=== PATIENT | female | born 1935 | race Caucasian/White ===

== ENCOUNTER 2017-11-21 08:26 | Day surgery (SDC) | payer OTHER ==
[~2017-11-21] VITALS: Ht 170.2 cm; Wt 83.9 kg
[~2017-11-21 08:26] MED LIST: ALBIPROI INH; ALBU90OI INH; ALBU90OI61; ALUMAG30SU PO; ASCO500 PO; ASPI325 PO; ASPI81EC PO; Acetaminophen325 M1 PO; CALCIUM CITRATE PO; CALMAGZIN PO; CEFP500 PO; CEFU500 PO; CHOL10002; Calcium + Vita1 EACH PO; Culturelle1 CAP PO; DILT120 PO; DILT180 PO; DOXY100 PO; FISH1000 PO; FLONASE ALLERG9.9 ML NS; FLUSAL2505; FLUSAL5005; FLUT1DIS5 INH; GLUCOSAMINE1000 MG PO; HYDACE5325 PO; HYDROCODONE CO PO; IBUP400 PO; LASIX PO; LEVFLO500 PO; LORA1 PO; LOSA50 PO; MELA3 PO; METF500C PO; METPRE4DP; MONT10T; MONT10T PO; MOXI400; MOXI400 PO; MULVITMIND PO; NEBI5 PO; OXYGEN; POTASSIUM CHLORIDE PO; PRED10 PO; PRED20 PO; PROBIOTIC; PROM25 PO; Prednisone20 MG PO; SULTRIDS; TIOT18 IH; VALS80; Ventolin/Prove6.7 GM INH; Veramyst10 GM; WARF5 PO; Zantac150 MG PO
[2017-11-21] MEDS ORDERED: NEBI5 PO (09:29)
[2017-11-21] MEDS ORDERED: ADULT ASPIRIN R81 MG PO (09:29)
[2018-08-29] MEDS ORDERED: CEFU500T30 PO (09:41)
[2018-08-29] MEDS ORDERED: DELTASONE20 MG PO (09:43)
== END 2017-11-21 12:15 | disposition home or self-care (01) ==
LOC: ORSCSDS 08:26
PROVIDERS: Internal Medicine Gastroenterology
PROC: 0DBK8ZX Excision of Ascending Colon, Via Natural or Artificial Opening Endoscopic, Diagnostic (ICD-10-PCS; principal; 2017-11-21 10:00)
PROC: 0DBH8ZX Excision of Cecum, Via Natural or Artificial Opening Endoscopic, Diagnostic (ICD-10-PCS; principal; 2017-11-21 10:00)
PROC: 0DBL8ZX Excision of Transverse Colon, Via Natural or Artificial Opening Endoscopic, Diagnostic (ICD-10-PCS; principal; 2017-11-21 10:00)
PROC: 0DBN8ZX Excision of Sigmoid Colon, Via Natural or Artificial Opening Endoscopic, Diagnostic (ICD-10-PCS; principal; 2017-11-21 10:00)
DX: Z12.11 Encounter for screening for malignant neoplasm of colon (principal); D12.0 Benign neoplasm of cecum; D12.3 Benign neoplasm of transverse colon; D12.4 Benign neoplasm of descending colon; K63.5 Polyp of colon; K64.8 Other hemorrhoids; K57.30 Diverticulosis of large intestine without perforation or abscess without bleeding; Z86.010 Personal history of colon polyps; J44.9 Chronic obstructive pulmonary disease, unspecified; I10 Essential (primary) hypertension; Z87.891 Personal history of nicotine dependence; Z79.82 Long term (current) use of aspirin; Z79.899 Other long term (current) drug therapy
CPT/HCPCS: 82947; 88305; J7120

== ENCOUNTER 2018-02-18 20:27 | Inpatient (IN) | payer OTHER ==
[~2018-02-18] VITALS: Ht 170.2 cm; Wt 81.9 kg
[~2018-02-18 20:27] MED LIST changes: +ADULT ASPIRIN R81 MG PO; +FLUSAL2505 IH; -FLUT1DIS5 INH; +METF500 PO; -METF500C PO; +RANI150 PO; -Zantac150 MG PO
[2018-02-18 20:51] LABS: BASOPHILS ABSOLUTE AUTO 0.04 K/mm3 (0.00-0.23); BASOPHILS PERCENT AUTO 0 % (0-2); EOSINOPHILS ABSOLUTE AUTO 0.25 K/mm3 (0.00-0.68); EOSINOPHILS PERCENT AUTO 2 % (0-6); Hematocrit 40.6 % (33.0-51.0); Hemoglobin 12.9 g/dL (11.5-16.0); IMMATURE GRAN ABSOLUTE AUTO 0.05 K/mm3 (0.00-0.10); IMMATURE GRAN PERCENT AUTO 0 % (0-1); LYMPHOCYTES PERCENT AUTO 10 % (21-46); MONOCYTES ABSOLUTE AUTO 0.86 K/mm3 (0.16-1.47); MONOCYTES PERCENT AUTO 5 % (4-13); Mean Corpuscular HGB 31.5 pg (26.0-34.0); Mean Corpuscular HGB Conc 31.8 g/dL (31.5-36.5); Mean Corpuscular Volume 99 fL (80-100); Mean Platelet Volume 10.7 fL (9.1-12.4); NEUTROPHILS ABSOLUTE AUTO 13.02 K/mm3 (1.96-9.15); NEUTROPHILS PERCENT AUTO 82 % (41-73); Platelet Count 221 K/mm3 (150-400); RDW Coefficient Variation 12.9 % (11.7-14.2); White Blood Cell Count 15.82 K/mm3 (4.00-11.30)
[2018-02-18 21:07] LABS: Alanine Aminotransfer (ALT/SGP 23 U/L (12-78); Albumin, Blood 3.7 g/dL (3.4-5.0); Albumin/Globulin Ratio 1.3 (0.8-1.8); Alk Phos 58 U/L (50-136); Anion Gap 5 mmol/L (6-16); Aspartate Aminotrans (AST/SGOT 19 U/L (12-37); Bilirubin, Total 0.6 mg/dL (0.1-1.0); Blood Urea Nitrogen 22 mg/dL (8-24); CO2, Blood 36 mmol/L (21-32); Calcium, Blood 8.9 mg/dL (8.5-10.1); Chloride, Blood 101 mmol/L (98-108); Creatinine, Blood 0.67 mg/dL (0.40-1.00); Globulin, Blood 2.9 g/dL (2.2-4.0); Glomerular Filtration Rate >60 (60-); Glucose, Blood 133 mg/dL (70-99); Potassium, Blood 4.8 mmol/L (3.5-5.5); Sodium, Blood 142 mmol/L (136-145); Total Protein, Blood 6.6 g/dL (6.4-8.2)
[2018-02-18 21:38] LABS: International Normalized Ratio 1.03; Prothrombin Time Results 10.7 Sec (9.7-11.5)
[2018-02-19 00:35] LABS: BASOPHILS ABSOLUTE AUTO 0.03 K/mm3 (0.00-0.23); BASOPHILS PERCENT AUTO 0 % (0-2); EOSINOPHILS ABSOLUTE AUTO 0.17 K/mm3 (0.00-0.68); EOSINOPHILS PERCENT AUTO 1 % (0-6); Hematocrit 36.7 % (33.0-51.0); Hemoglobin 11.6 g/dL (11.5-16.0); IMMATURE GRAN ABSOLUTE AUTO 0.06 K/mm3 (0.00-0.10); IMMATURE GRAN PERCENT AUTO 0 % (0-1); LYMPHOCYTES ABSOLUTE AUTO 0.54 K/mm3 (0.84-5.20); LYMPHOCYTES PERCENT AUTO 3 % (21-46); MONOCYTES ABSOLUTE AUTO 0.69 K/mm3 (0.16-1.47); MONOCYTES PERCENT AUTO 4 % (4-13); Mean Corpuscular HGB 31.3 pg (26.0-34.0); Mean Corpuscular HGB Conc 31.6 g/dL (31.5-36.5); Mean Corpuscular Volume 99 fL (80-100); Mean Platelet Volume 10.6 fL (9.1-12.4); NEUTROPHILS ABSOLUTE AUTO 14.84 K/mm3 (1.96-9.15); NEUTROPHILS PERCENT AUTO 91 % (41-73); Platelet Count 180 K/mm3 (150-400); RDW Coefficient Variation 12.8 % (11.7-14.2); RDW Standard Deviation 46.5 fL (35.1-46.3); Red Blood Cell Count 3.71 M/mm3 (3.80-5.20); White Blood Cell Count 16.33 K/mm3 (4.00-11.30)
[2018-02-19] MEDS ORDERED: ASPI325 PO (01:01)
[2018-02-19] MEDS ORDERED: TOCO1000 PO (01:06)
[2018-02-19 05:09] LABS: BASOPHILS ABSOLUTE AUTO 0.02 K/mm3 (0.00-0.23); BASOPHILS PERCENT AUTO 0 % (0-2); EOSINOPHILS ABSOLUTE AUTO 0.14 K/mm3 (0.00-0.68); EOSINOPHILS PERCENT AUTO 1 % (0-6); Hematocrit 32.5 % (33.0-51.0); Hemoglobin 10.4 g/dL (11.5-16.0); IMMATURE GRAN ABSOLUTE AUTO 0.03 K/mm3 (0.00-0.10); IMMATURE GRAN PERCENT AUTO 0 % (0-1); LYMPHOCYTES ABSOLUTE AUTO 0.76 K/mm3 (0.84-5.20); LYMPHOCYTES PERCENT AUTO 7 % (21-46); MONOCYTES ABSOLUTE AUTO 0.62 K/mm3 (0.16-1.47); MONOCYTES PERCENT AUTO 6 % (4-13); Mean Corpuscular HGB 31.9 pg (26.0-34.0); Mean Corpuscular Volume 100 fL (80-100); Mean Platelet Volume 10.9 fL (9.1-12.4); NEUTROPHILS ABSOLUTE AUTO 9.64 K/mm3 (1.96-9.15); NEUTROPHILS PERCENT AUTO 86 % (41-73); Platelet Count 158 K/mm3 (150-400); RDW Coefficient Variation 13.2 % (11.7-14.2); RDW Standard Deviation 48.6 fL (35.1-46.3); Red Blood Cell Count 3.26 M/mm3 (3.80-5.20); White Blood Cell Count 11.21 K/mm3 (4.00-11.30)
[2018-02-19 05:25] LABS: Anion Gap 5 mmol/L (6-16); Blood Urea Nitrogen 22 mg/dL (8-24); Bun/Creatinine Ratio 27.5 (12.0-20.0); CO2, Blood 31 mmol/L (21-32); Calcium, Blood 7.6 mg/dL (8.5-10.1); Chloride, Blood 107 mmol/L (98-108); Glomerular Filtration Rate >60 (60-); Glucose, Blood 163 mg/dL (70-99); Potassium, Blood 4.8 mmol/L (3.5-5.5); Sodium, Blood 143 mmol/L (136-145)
[2018-02-20 04:17] LABS: Hematocrit 30.4 % (33.0-51.0); Hemoglobin 9.7 g/dL (11.5-16.0)
[2018-02-20 10:35] LABS: Anion Gap 5 mmol/L (6-16); Blood Urea Nitrogen 8 mg/dL (8-24); Bun/Creatinine Ratio 13.4 (12.0-20.0); CO2, Blood 32 mmol/L (21-32); Calcium, Blood 8.1 mg/dL (8.5-10.1); Chloride, Blood 106 mmol/L (98-108); Glomerular Filtration Rate >60 (60-); Glucose, Blood 177 mg/dL (70-99); Potassium, Blood 3.8 mmol/L (3.5-5.5); Sodium, Blood 143 mmol/L (136-145)
== END 2018-02-20 15:10 | disposition home or self-care (01) | DRG 379 ==
LOC: ER 20:27 → ICUW 22:29 → PCU 22:29 → ICUW 02-19 00:26
PROVIDERS: Emergency Medicine; Family Medicine; Internal Medicine; Internal Medicine Gastroenterology
DX: K62.5 Hemorrhage of anus and rectum (principal)
CPT/HCPCS: 36415; 36430; 80048; 80053; 85014; 85018; 85025; 85610; 85730; 86850; 86900; 86901; 86923; 88305; 93005; 93010; 94640; 96374; 96376; 99285; C9113; J1940; J1980; J7030; J7042; J7120; P9016

== ENCOUNTER 2018-07-29 14:20 | Inpatient (IN) | payer OTHER ==
[~2018-07-29] VITALS: Ht 170.2 cm; Wt 82.2 kg
[~2018-07-29 14:20] MED LIST changes: -FLUSAL2505 IH; +FLUT1DIS5 INH; -METF500 PO; +METF500C PO; -RANI150 PO; +TOCO1000 PO; +Zantac150 MG PO
[2018-07-29 14:50] LABS: BASOPHILS ABSOLUTE AUTO 0.03 K/mm3 (0.00-0.23); BASOPHILS PERCENT AUTO 0 % (0-2); EOSINOPHILS ABSOLUTE AUTO 0.12 K/mm3 (0.00-0.68); EOSINOPHILS PERCENT AUTO 2 % (0-6); Hemoglobin 12.2 g/dL (11.5-16.0); IMMATURE GRAN ABSOLUTE AUTO 0.02 K/mm3 (0.00-0.10); IMMATURE GRAN PERCENT AUTO 0 % (0-1); LYMPHOCYTES ABSOLUTE AUTO 0.84 K/mm3 (0.84-5.20); LYMPHOCYTES PERCENT AUTO 10 % (21-46); MONOCYTES ABSOLUTE AUTO 0.52 K/mm3 (0.16-1.47); MONOCYTES PERCENT AUTO 6 % (4-13); Mean Corpuscular HGB 31.8 pg (26.0-34.0); Mean Corpuscular HGB Conc 30.5 g/dL (31.5-36.5); Mean Corpuscular Volume 104 fL (80-100); Mean Platelet Volume 10.6 fL (9.1-12.4); NEUTROPHILS ABSOLUTE AUTO 6.68 K/mm3 (1.96-9.15); NEUTROPHILS PERCENT AUTO 81 % (41-73); Platelet Count 174 K/mm3 (150-400); RDW Coefficient Variation 13.7 % (11.7-14.2); Red Blood Cell Count 3.84 M/mm3 (3.80-5.20); White Blood Cell Count 8.21 K/mm3 (4.00-11.30)
[2018-07-29 15:07] LABS: Alanine Aminotransfer (ALT/SGP 18 U/L (12-78); Albumin, Blood 3.7 g/dL (3.4-5.0); Albumin/Globulin Ratio 1.1 (0.8-1.8); Alk Phos 57 U/L (50-136); Anion Gap 3 mmol/L (6-16); Aspartate Aminotrans (AST/SGOT 13 U/L (12-37); Bilirubin, Total 0.6 mg/dL (0.1-1.0); Blood Urea Nitrogen 15 mg/dL (8-24); Bun/Creatinine Ratio 24.6 (12.0-20.0); CO2, Blood 40 mmol/L (21-32); Chloride, Blood 96 mmol/L (98-108); Creatinine, Blood 0.61 mg/dL (0.40-1.00); Globulin, Blood 3.3 g/dL (2.2-4.0); Glomerular Filtration Rate >60 (60-); Glucose, Blood 121 mg/dL (70-99); Potassium, Blood 4.6 mmol/L (3.5-5.5); Sodium, Blood 139 mmol/L (136-145); Troponin I <0.015 ng/mL (0.000-0.040)
[2018-07-29 16:14] LABS: PCO2 Arterial 80.3 mmHg (35-45); PO2 Arterial 70.7 mmHg (80-100); pH Blood Arterial 7.29 (7.35-7.45)
[2018-07-29 19:43] LABS: Blood, Urine Neg (Neg); Glucose Qualitative, Urine Neg (Neg); Ketones, Urine 1+ (Neg); Leukocyte Esterase, Urine Neg (Neg); Nitrite, Urine Pos (Neg); Protein, Urine Neg (Neg); Specific Gravity, Urine 1.015 (1.003-1.022); Urobilinogen, Urine 1+ (Normal)
[2018-07-29 19:44] LABS: Appearance, Urine Clear (Clear); Bilirubin, Urine 1+ (Neg); Color, Urine Orange (P-Yellow)
[2018-07-29 19:49] LABS: Bacteria Not Seen /hpf; Red Blood Cells, Urine 0-2 /hpf (0-2); Squamous Epithelial Cells Few /hpf (Few); White Blood Cells, Urine 0-2 /hpf (0-5)
[2018-07-30 08:02] LABS: PCO2 Arterial 82.9 mmHg (35-45); pH Blood Arterial 7.29 (7.35-7.45)
[2018-08-01 06:04] LABS: Anion Gap 4 mmol/L (6-16); Blood Urea Nitrogen 28 mg/dL (8-24); Bun/Creatinine Ratio 40.9 (12.0-20.0); CO2, Blood 38 mmol/L (21-32); Calcium, Blood 8.8 mg/dL (8.5-10.1); Chloride, Blood 96 mmol/L (98-108); Creatinine, Blood 0.68 mg/dL (0.40-1.00); Glomerular Filtration Rate >60 (60-); Glucose, Blood 189 mg/dL (70-99); Sodium, Blood 138 mmol/L (136-145)
[2018-08-02] MEDS ORDERED: METO50ER PO (10:23)
[2018-08-02] MEDS ORDERED: PRED10 PO (10:48)
== END 2018-08-02 11:15 | disposition home or self-care (01) | DRG 189 ==
LOC: ER 14:20 → ICUW 16:30 → PCU 16:30
PROVIDERS: Emergency Medicine; Family Medicine; Internal Medicine Critical Care Medicine
DX: J96.22 Acute and chronic respiratory failure with hypercapnia (principal); J44.1 Chronic obstructive pulmonary disease with (acute) exacerbation; E87.3 Alkalosis; E87.2 Acidosis; I48.92 Unspecified atrial flutter; J96.21 Acute and chronic respiratory failure with hypoxia; I10 Essential (primary) hypertension; Z87.891 Personal history of nicotine dependence; Z99.81 Dependence on supplemental oxygen; I27.20 Pulmonary hypertension, unspecified; E11.9 Type 2 diabetes mellitus without complications; Z79.84 Long term (current) use of oral hypoglycemic drugs; Z79.82 Long term (current) use of aspirin; I48.0 Paroxysmal atrial fibrillation; I48.91 Unspecified atrial fibrillation
CPT/HCPCS: 36415; 36600; 71046; 80048; 80053; 81001; 82803; 84484; 85025; 87086; 90686; 93005; 93010; 93306; 94640; 94760; 96361; 96374; 99285-25; G0008; J1940; J2920; J2930; J7030

== ENCOUNTER 2018-09-23 04:31 | Emergency (ER) | payer OTHER ==
[~2018-09-23] VITALS: Ht 170.2 cm; Wt 81.7 kg
[~2018-09-23 04:31] MED LIST changes: +CEFU500T30 PO; +DELTASONE20 MG PO; +METO50ER PO
[2018-09-23] MEDS ORDERED: DELTASONE20 MG PO (04:45)
[2018-09-23] MEDS ORDERED: FURO40 PO (04:46)
[2018-09-23] MEDS ORDERED: OMEGA 3 500 SO1 EACH PO (04:47)
[2018-09-23] MEDS ORDERED: VITAMIN E400 UNI1 PO (04:49)
[2018-09-23] MEDS ORDERED: POTCHL10ER PO (04:50)
[2018-09-23] MEDS ORDERED: Biscolax10 MG PR (04:52)
[2018-09-23] MEDS ORDERED: ALUM-MAG HYDRO360 ML PO (04:53)
[2018-09-23] MEDS ORDERED: ALBU3IS INH (04:53)
[2018-09-23 05:32] LABS: Alanine Aminotransfer (ALT/SGP 26 U/L (12-78); Albumin, Blood 2.7 g/dL (3.4-5.0); Albumin/Globulin Ratio 1.1 (0.8-1.8); Alk Phos 50 U/L (50-136); Aspartate Aminotrans (AST/SGOT 12 U/L (12-37); Bilirubin, Total 1.6 mg/dL (0.1-1.0); Blood Urea Nitrogen 18 mg/dL (8-24); Bun/Creatinine Ratio 38.5 (12.0-20.0); Calcium, Blood 8.2 mg/dL (8.5-10.1); Chloride, Blood 78 mmol/L (98-108); Creatinine, Blood 0.47 mg/dL (0.40-1.00); Globulin, Blood 2.5 g/dL (2.2-4.0); Glomerular Filtration Rate >60 (60-); Glucose, Blood 105 mg/dL (70-99); Magnesium, Blood 1.6 mg/dL (1.6-2.4); Potassium, Blood 4.5 mmol/L (3.5-5.5); Sodium, Blood 132 mmol/L (136-145); Total Protein, Blood 5.2 g/dL (6.4-8.2); Troponin I 0.027 ng/mL (0.000-0.040)
[2018-09-23 05:35] LABS: BASOPHILS ABSOLUTE AUTO 0.02 K/mm3 (0.00-0.23); BASOPHILS PERCENT AUTO 0 % (0-2); EOSINOPHILS ABSOLUTE AUTO 0.16 K/mm3 (0.00-0.68); EOSINOPHILS PERCENT AUTO 1 % (0-6); Hematocrit 34.4 % (33.0-51.0); Hemoglobin 10.9 g/dL (11.5-16.0); IMMATURE GRAN ABSOLUTE AUTO 0.15 K/mm3 (0.00-0.10); IMMATURE GRAN PERCENT AUTO 1 % (0-1); LYMPHOCYTES ABSOLUTE AUTO 0.37 K/mm3 (0.84-5.20); LYMPHOCYTES PERCENT AUTO 2 % (21-46); MONOCYTES ABSOLUTE AUTO 0.62 K/mm3 (0.16-1.47); MONOCYTES PERCENT AUTO 4 % (4-13); Mean Corpuscular HGB 32.1 pg (26.0-34.0); Mean Corpuscular HGB Conc 31.7 g/dL (31.5-36.5); Mean Corpuscular Volume 101 fL (80-100); Mean Platelet Volume 10.6 fL (9.1-12.4); NEUTROPHILS PERCENT AUTO 91 % (41-73); Platelet Count 78 K/mm3 (150-400); RDW Coefficient Variation 14.7 % (11.7-14.2); RDW Standard Deviation 53.2 fL (35.1-46.3); White Blood Cell Count 15.22 K/mm3 (4.00-11.30)
[2018-09-23 05:37] LABS: Anion Gap Unable to Calculate mmol/L (6-16)
[2018-09-23 05:39] LABS: CO2, Blood >45 mmol/L (21-32)
[2018-09-23 05:41] LABS: PCO2 Arterial 85.9 mmHg (35-45); PO2 Arterial 97.3 mmHg (80-100); pH Blood Arterial 7.42 (7.35-7.45)
[2018-09-23 05:47] LABS: International Normalized Ratio 1.06; Prothrombin Time Results 10.9 Sec (9.7-11.5)
[2018-09-23] MEDS ORDERED: MINO50 PO (13:06)
== END 2018-09-23 06:55 | disposition home or self-care (01) ==
LOC: ER 04:31
PROVIDERS: Emergency Medicine
DX: J44.1 Chronic obstructive pulmonary disease with (acute) exacerbation (principal); E11.10 Type 2 diabetes mellitus with ketoacidosis without coma; I10 Essential (primary) hypertension; I48.91 Unspecified atrial fibrillation; Z88.8 Allergy status to other drugs, medicaments and biological substances; Z91.048 Other nonmedicinal substance allergy status; Z88.1 Allergy status to other antibiotic agents; Z88.0 Allergy status to penicillin; Z88.2 Allergy status to sulfonamides; Z88.5 Allergy status to narcotic agent; Z79.899 Other long term (current) drug therapy; Z79.82 Long term (current) use of aspirin; Z79.52 Long term (current) use of systemic steroids; Z79.84 Long term (current) use of oral hypoglycemic drugs; Z87.891 Personal history of nicotine dependence
CPT/HCPCS: 36415; 36600; 71046; 80053; 82803; 83735; 83880; 84484; 85025; 85610; 93005; 93010; 99285-25

== ENCOUNTER 2018-09-23 10:00 | Emergency (ER) | payer OTHER ==
[~2018-09-23] VITALS: Ht 172.7 cm; Wt 72.6 kg
[~2018-09-23 10:00] MED LIST changes: +ALBU3IS INH; +ALUM-MAG HYDRO360 ML PO; +Biscolax10 MG PR; +FURO40 PO; +OMEGA 3 500 SO1 EACH PO; +POTCHL10ER PO; +VITAMIN E400 UNI1 PO
[2018-09-23 11:50] LABS: Base Excess Venous 27.8 mmol/L; Bicarbonate Venous 48.4 mmol/L (24.0-30.0); PCO2 Venous 76.5 mmHg (38-42); PO2 Venous 63.8 mmHg (38-42); pH Blood Venous 7.44 (7.34-7.37)
[2018-09-23] MEDS ORDERED: MINO50 PO (13:06)
== END 2018-09-23 13:36 | disposition home or self-care (01) ==
LOC: ER 10:00
PROVIDERS: Emergency Medicine
DX: J96.12 Chronic respiratory failure with hypercapnia (principal); J96.11 Chronic respiratory failure with hypoxia; J40 Bronchitis, not specified as acute or chronic; E11.9 Type 2 diabetes mellitus without complications; I10 Essential (primary) hypertension; I48.91 Unspecified atrial fibrillation; J44.9 Chronic obstructive pulmonary disease, unspecified; Z88.8 Allergy status to other drugs, medicaments and biological substances; Z91.048 Other nonmedicinal substance allergy status; Z88.1 Allergy status to other antibiotic agents; Z88.0 Allergy status to penicillin; Z88.2 Allergy status to sulfonamides; Z88.5 Allergy status to narcotic agent; Z87.891 Personal history of nicotine dependence; Z79.84 Long term (current) use of oral hypoglycemic drugs; Z79.82 Long term (current) use of aspirin; Z79.899 Other long term (current) drug therapy; Z79.52 Long term (current) use of systemic steroids; Z99.81 Dependence on supplemental oxygen
CPT/HCPCS: 82803; 93005; 93010; 94644; 99285-25

== ENCOUNTER 2018-10-17 23:55 | Inpatient (IN) | payer OTHER ==
[~2018-10-17] VITALS: Ht 167.6 cm; Wt 74.9 kg
[~2018-10-17 23:55] MED LIST changes: +MINO50 PO
[2018-10-18 00:11] LABS: BASOPHILS ABSOLUTE AUTO 0.04 K/mm3 (0.00-0.23); BASOPHILS PERCENT AUTO 0 % (0-2); EOSINOPHILS PERCENT AUTO 0 % (0-6); Hematocrit 34.9 % (33.0-51.0); Hemoglobin 10.7 g/dL (11.5-16.0); IMMATURE GRAN ABSOLUTE AUTO 0.44 K/mm3 (0.00-0.10); IMMATURE GRAN PERCENT AUTO 2 % (0-1); LYMPHOCYTES ABSOLUTE AUTO 0.54 K/mm3 (0.84-5.20); LYMPHOCYTES PERCENT AUTO 3 % (21-46); MONOCYTES ABSOLUTE AUTO 0.43 K/mm3 (0.16-1.47); MONOCYTES PERCENT AUTO 2 % (4-13); Mean Corpuscular HGB 33.3 pg (26.0-34.0); Mean Corpuscular HGB Conc 30.7 g/dL (31.5-36.5); Mean Corpuscular Volume 109 fL (80-100); Mean Platelet Volume 10.1 fL (9.1-12.4); NEUTROPHILS ABSOLUTE AUTO 18.98 K/mm3 (1.96-9.15); NEUTROPHILS PERCENT AUTO 93 % (41-73); Platelet Count 130 K/mm3 (150-400); RDW Standard Deviation 65.4 fL (35.1-46.3); Red Blood Cell Count 3.21 M/mm3 (3.80-5.20); White Blood Cell Count 20.43 K/mm3 (4.00-11.30)
[2018-10-18 00:29] LABS: Alanine Aminotransfer (ALT/SGP 27 U/L (12-78); Albumin, Blood 2.9 g/dL (3.4-5.0); Alk Phos 56 U/L (50-136); Aspartate Aminotrans (AST/SGOT 7 U/L (12-37); Bilirubin, Total 0.7 mg/dL (0.1-1.0); Blood Urea Nitrogen 32 mg/dL (8-24); Bun/Creatinine Ratio 69.3 (12.0-20.0); Calcium, Blood 8.6 mg/dL (8.5-10.1); Chloride, Blood 82 mmol/L (98-108); Creatinine, Blood 0.46 mg/dL (0.40-1.00); Globulin, Blood 2.9 g/dL (2.2-4.0); Glomerular Filtration Rate >60 (60-); Glucose, Blood 340 mg/dL (70-99); Potassium, Blood 5.4 mmol/L (3.5-5.5); Sodium, Blood 133 mmol/L (136-145); Total Protein, Blood 5.8 g/dL (6.4-8.2)
[2018-10-18 00:49] LABS: Anion Gap Unable to Calculate mmol/L (6-16); CO2, Blood >45 mmol/L (21-32)
[2018-10-18 03:15] LABS: PO2 Arterial 117 mmHg (80-100); pH Blood Arterial 7.26 (7.35-7.45)
[2018-10-18 03:16] LABS: PCO2 Arterial > 106 mmHg (35-45)
--- NOTE | 2018-10-18 03:20 | NUR ---
PT ARRIVED TO ICU 12 FROM ER AT 0240 VIA GURNEY. MAX ASSIST TO BED. PT IS DROWSY BUT WILL AROUSE TO VOICE AND SEEMS TO BE ANSWERING QUESTIONS APPROPRIATELY. ABG DRAWN DUE TO BIPAP ORDERS AND NO BASELINE ABG. CO2 GREATER THAN 106. RT PLACED BIPAP. WILL RECHECK ABG IN 2 HRS. SEE ADMIT ASSESSMENT.
[2018-10-18] MEDS ORDERED: ALUM-MAG HYDRO360 ML PO (03:22)
--- NOTE | 2018-10-18 04:22 | NUR ---
CALLED DR. MONTEZ TO CLARIFY DNR ORDER. DR. MONTEZ STATES HE TALKED TO AND PT AND BOTH AGREED TO DNR ORDERS DESPITE POLST THAT WAS SIGNED IN SEPTEMBER.
[2018-10-18 05:37] LABS: PO2 Arterial 78.2 mmHg (80-100)
[2018-10-18 05:38] LABS: PCO2 Arterial > 106 mmHg (35-45)
--- NOTE | 2018-10-18 06:28 | NUR ---
SUMMARY PT RESTING IN BED ON BIPAP. PT WILL OPEN EYE'S TO VOICE AND ANSWER SOME QUESTIONS. CO2 IS STILL HIGH THIS AM AFTER BEING ON BIPAP FOR 2HRS. PH IS IMPROVING. PT IS INCONTINENT OF URINE. PLACED ATTENDS. PT HAS SKIN BREAKDOWN ON BUTTOCKS. TOOK PHOTOS AND PLACED MEPILEX SACRAL DRESSING FOR PROTECTION. BARRIER CREAM ALSO APPLIED TO SURROUNDING SKIN. NO SIGN OF DISTRESS AT THE MOMENT.
[2018-10-18 09:37] LABS: Hematocrit 35.8 % (33.0-51.0); Hemoglobin 10.8 g/dL (11.5-16.0); Mean Corpuscular HGB 32.1 pg (26.0-34.0); Mean Corpuscular HGB Conc 30.2 g/dL (31.5-36.5); Mean Corpuscular Volume 107 fL (80-100); Mean Platelet Volume 10.6 fL (9.1-12.4); NRBC ABSOLUTE 0.02 K/mm3 (0.00-0.02); NRBC Auto 0.1 /100 WBC (0.0-0.2); Platelet Count 124 K/mm3 (150-400); RDW Coefficient Variation 16.2 % (11.7-14.2); RDW Standard Deviation 63.7 fL (35.1-46.3); Red Blood Cell Count 3.36 M/mm3 (3.80-5.20)
--- NOTE | 2018-10-18 11:52 | NUR ---
0730-ASSUMED CARE OF PT. PT AWAKE. PT IS CONFUSED. DENIES PAIN AT THIS TIME. PT IS ON BIPAP. 0830- AT BEDSIDE, UPDATED HIM OF PT'S STATUS. 0900-DENIES PAIN. PT SEEN BY DR. RENTERIA. UPDATED HER OF PT'S STATUS. SHE CHANGED BIPAP SETTINGS. 1000-GAVE PT A BREAK OFF HER BIPAP AT THIS TIME. PT MORE AWAKE. FAMILY AT BEDSIDE. MORE CONVERSANT. SOMEWHAT MORE ORIENTED NOW THAN THIS MORNING.
[2018-10-18 13:00] LABS: Base Excess Venous 27.7 mmol/L; Bicarbonate Venous 48.5 mmol/L (24.0-30.0); PO2 Venous 60.4 mmHg (38-42)
--- NOTE | 2018-10-18 17:24 | NUR ---
SHIFT SUMMARY: PT HAS MOSTLY WORN HER BIPAP ALL DAY WITH A FEW BREAKS IN BETWEEN. PT IS MORE ALERT AND MORE ORIENTED BUT STILL WITH OCCASSIONAL CONFUSION. PT DENIES PAIN. AFEBRILE. STILL AT BEDSIDE. PT DOES ABLE TO TAKE HER MEDICATIONS WITHOUT ANY DIFFICULTY.
--- NOTE | 2018-10-18 20:40 | NUR ---
ASSUMED CARE REPORT RECIEVED. PT IS LAYING IN BED, AWAKE, ALERT, AND ORIETNED, WATCHING TV AT THIS TIME. PT IS FOLLOWING COMMANDS APPROPRIATELY. PT DENIES PAIN, NAUSEA, OR SOB. PT ON 2L O2 NC. VITAL SIGNS STABLE. PT TOLERATING PO FLUIDS WELL WITH FLUIDS. PT WITH ATTENDS IN PLACE. IV SALINE LOCKED. WILL CONTINUE TO MONITOR.
[2018-10-19 03:35] LABS: BASOPHILS ABSOLUTE AUTO 0.04 K/mm3 (0.00-0.23); BASOPHILS PERCENT AUTO 0 % (0-2); EOSINOPHILS PERCENT AUTO 0 % (0-6); Hematocrit 32.4 % (33.0-51.0); Hemoglobin 10.2 g/dL (11.5-16.0); IMMATURE GRAN ABSOLUTE AUTO 0.44 K/mm3 (0.00-0.10); IMMATURE GRAN PERCENT AUTO 2 % (0-1); LYMPHOCYTES ABSOLUTE AUTO 0.33 K/mm3 (0.84-5.20); LYMPHOCYTES PERCENT AUTO 2 % (21-46); MONOCYTES ABSOLUTE AUTO 0.27 K/mm3 (0.16-1.47); MONOCYTES PERCENT AUTO 1 % (4-13); Mean Corpuscular HGB 32.3 pg (26.0-34.0); Mean Corpuscular HGB Conc 31.5 g/dL (31.5-36.5); Mean Platelet Volume 10.9 fL (9.1-12.4); NEUTROPHILS ABSOLUTE AUTO 17.62 K/mm3 (1.96-9.15); NEUTROPHILS PERCENT AUTO 94 % (41-73); Platelet Count 109 K/mm3 (150-400); RDW Coefficient Variation 15.9 % (11.7-14.2); RDW Standard Deviation 60.9 fL (35.1-46.3); Red Blood Cell Count 3.16 M/mm3 (3.80-5.20)
[2018-10-19 03:49] LABS: Blood Urea Nitrogen 34 mg/dL (8-24); Calcium, Blood 8.9 mg/dL (8.5-10.1); Chloride, Blood 85 mmol/L (98-108); Creatinine, Blood 0.47 mg/dL (0.40-1.00); Glomerular Filtration Rate >60 (60-); Glucose, Blood 216 mg/dL (70-99); Potassium, Blood 5.7 mmol/L (3.5-5.5); Sodium, Blood 132 mmol/L (136-145)
[2018-10-19 03:57] LABS: Mean Corpuscular Volume 103 fL (80-100)
[2018-10-19 04:00] LABS: Anion Gap Unable to Calculate mmol/L (6-16); CO2, Blood >45 mmol/L (21-32)
[2018-10-19 04:24] LABS: PO2 Arterial 69.7 mmHg (80-100); pH Blood Arterial 7.42 (7.35-7.45)
--- NOTE | 2018-10-19 06:01 | NUR ---
SHIFT SUMMARY NO ACUTE CHANGES THIS SHIFT. PT HAS USED BIPAP THROUGHOUT MOST OF THE NIGHT WITH SETTINGS 14/6, FIO2 35%. VITAL SIGNS HAVE REMAINED STABLE. PT IS ALERT AND ORIENTED WHEN AWAKE. CO2 ON ABG HAS IMPROVED THIS MORNING WHEN COMPARED TO PREVIOUS ABG. IV SALINE LOCKED. ATTENDS IN PLACE, PT INCONTINENT OF URINE. WILL CONTINUE TO MONITOR AND REPORT OFF TO ONCOMING RN.
--- NOTE | 2018-10-19 09:43 | NUR ---
CARE ASSUMED CARE AND REPORT ASSUMED FROM JAZZ MARQUEZ. PT SITTING UP IN BED. BIPAP ON AT THIS TIME; SETTINGS 14/6, 35% FIO2. BIPAP REMOVED AT 0930 AND 4L NC APPLIED; SPO2 100%. PT RECIEVED BEDBATH, LINEN CHANGE, ATTENDS CHANGE, AND TURN BY DEFENSIVE SECONDARY COACH AND RN. VSS. AFIB, HR 100-120S. BP STABLE. AFEBRILE. IV SALINE LOCKED. SWALLOWED PILLS WITHOUT DIFFICULTY. A/O X2, INQUIRED ABOUT DATE. TALKING IN FULL SENTENCES. WILL CONTINUE TO MONITOR.
--- NOTE | 2018-10-19 12:07 | NUR ---
REASSESSMENT PT SITTING UP IN BED TALKING WITH . VSS. HR 100. BP STABLE.NO COMPLAINTS OF PAIN. WILL CONTINUE TO MONITOR.
--- NOTE | 2018-10-19 17:48 | NUR ---
SHIFT SUMMARY PT AWAKE MOST OF DAY. A/O X 3 ENTIRE SHIFT. VISITED WITH FAMILY DURING DAY. DIET ADVANCED TO SOFT FOOD AND PT TOLERATING. DENIED PAIN ENTIRE SHIFT. VSS. HAS REMAINED IN AFIB. BP STABLE. ONLY NEEDED BIPAP FOR SHORT TIME THIS AM. 30 MIN LONG ALBUTEROL TX GIVEN TO DECREASE POTASSIUM LEVEL. REPEAT POTASSIUM 5.0. WILL GIVE BEDSIDE, HANDOFF REPORT TO ROSEANN MARQUEZ.
--- NOTE | 2018-10-20 01:29 | NUR ---
1909: CARE ASSUMED, PT RESTING IN BED W/OUT C/Os. SPO2 94 ON 2L NC. 2029: TURNING WELL IN BED, ATTENDS CHANGED W/ASSIST OF 1 RN. HS CARE, BLOOD SUGAR TREATED, METFORMIN GIVEN W/ APPLESAUCE. BiPAP MASK PLACED, PREPROGRAM PER R.T. O2 @ 2L, QUICKLY TO SLEEP. 2299: AWOKE CONFUSED TON TIME & PLACE, REORIENTED, ATTENDS CHANGED. PT WILL TX TO MEDICAL UNIT, REPORT GIVEN TO ALMA CARRILLO.
[2018-10-20 04:18] LABS: PCO2 Arterial 79.3 mmHg (35-45); PO2 Arterial 79.7 mmHg (80-100); pH Blood Arterial 7.41 (7.35-7.45)
--- NOTE | 2018-10-20 04:23 | NUR ---
RT called to point out that pt had a critical value 79 was 78 yesterday. the tech said that it was for the nurses information. pt is on bipap as prescribed, a+o, heart reate remains afib, pt on tele and oximiter
[2018-10-20 05:43] LABS: BASOPHILS ABSOLUTE AUTO 0.03 K/mm3 (0.00-0.23); BASOPHILS PERCENT AUTO 0 % (0-2); EOSINOPHILS PERCENT AUTO 0 % (0-6); Hematocrit 33.2 % (33.0-51.0); Hemoglobin 10.3 g/dL (11.5-16.0); IMMATURE GRAN ABSOLUTE AUTO 0.29 K/mm3 (0.00-0.10); IMMATURE GRAN PERCENT AUTO 1 % (0-1); LYMPHOCYTES ABSOLUTE AUTO 0.24 K/mm3 (0.84-5.20); LYMPHOCYTES PERCENT AUTO 1 % (21-46); MONOCYTES PERCENT AUTO 3 % (4-13); Mean Corpuscular HGB 32.6 pg (26.0-34.0); Mean Corpuscular Volume 105 fL (80-100); Mean Platelet Volume 10.8 fL (9.1-12.4); NEUTROPHILS ABSOLUTE AUTO 19.31 K/mm3 (1.96-9.15); NEUTROPHILS PERCENT AUTO 95 % (41-73); Platelet Count 120 K/mm3 (150-400); RDW Coefficient Variation 16.1 % (11.7-14.2); RDW Standard Deviation 62.3 fL (35.1-46.3); Red Blood Cell Count 3.16 M/mm3 (3.80-5.20); White Blood Cell Count 20.37 K/mm3 (4.00-11.30)
[2018-10-20 06:11] LABS: Blood Urea Nitrogen 38 mg/dL (8-24); Bun/Creatinine Ratio 71.4 (12.0-20.0); Calcium, Blood 9.7 mg/dL (8.5-10.1); Chloride, Blood 86 mmol/L (98-108); Creatinine, Blood 0.53 mg/dL (0.40-1.00); Glomerular Filtration Rate >60 (60-); Glucose, Blood 161 mg/dL (70-99); Potassium, Blood 5.3 mmol/L (3.5-5.5); Sodium, Blood 132 mmol/L (136-145)
[2018-10-20 06:14] LABS: Anion Gap Unable to Calculate mmol/L (6-16)
[2018-10-20 06:18] LABS: CO2, Blood >45 mmol/L (21-32)
--- NOTE | 2018-10-20 17:01 | NUR ---
REPORT TO SUSAN AT [facility]. WILL HAVE PROGRAM EVALUATOR FAX OVER SWALLOW EVAL. ANSWER ALL QUESTIONS. IN W/C TO [facility]
[2018-10-20] MEDS ORDERED: CEFP200 PO (17:08)
[2018-10-20] MEDS ORDERED: ONDA4ODT MM (17:09)
== END 2018-10-20 16:55 | DRG 871 ==
LOC: ER 23:55 → ICUW 10-18 01:19 → MEDS 10-20 00:05
PROVIDERS: Emergency Medicine; Family Medicine; Internal Medicine Pulmonary Disease; ADMIT Internal Medicine
PROC: 5A09357 Assistance with Respiratory Ventilation, Less than 24 Consecutive Hours, Continuous Positive Airway Pressure (ICD-10-PCS; principal; 2018-10-18)
PROC: 3E02340 Introduction of Influenza Vaccine into Muscle, Percutaneous Approach (ICD-10-PCS; 2018-10-18)
DX: A41.9 Sepsis, unspecified organism (principal); J96.21 Acute and chronic respiratory failure with hypoxia; J96.22 Acute and chronic respiratory failure with hypercapnia; J18.9 Pneumonia, unspecified organism; E87.1 Hypo-osmolality and hyponatremia; E87.2 Acidosis; I50.32 Chronic diastolic (congestive) heart failure; J44.0 Chronic obstructive pulmonary disease with (acute) lower respiratory infection; J44.1 Chronic obstructive pulmonary disease with (acute) exacerbation; R65.20 Severe sepsis without septic shock; I11.0 Hypertensive heart disease with heart failure; I48.2 Chronic atrial fibrillation; Z99.81 Dependence on supplemental oxygen; Z87.891 Personal history of nicotine dependence; Z66 Do not resuscitate; Z23 Encounter for immunization; L89.329 Pressure ulcer of left buttock, unspecified stage; L89.319 Pressure ulcer of right buttock, unspecified stage
CPT/HCPCS: 36415; 36600; 71045; 71046; 80048; 80053; 82803; 82947; 83605; 84132; 84145; 85025; 85027; 92610; 94640; 94644; 94660; 94762; 99285-25; J0696; J2920; J2930; J7120

== ENCOUNTER 2018-10-21 19:20 | Inpatient (IN) | payer OTHER ==
[~2018-10-21] VITALS: Ht 167.6 cm; Wt 69.0 kg
[~2018-10-21 19:20] MED LIST changes: +CEFP200 PO; +ONDA4ODT MM
[2018-10-21 19:54] LABS: BASOPHILS ABSOLUTE AUTO 0.03 K/mm3 (0.00-0.23); BASOPHILS PERCENT AUTO 0 % (0-2); EOSINOPHILS ABSOLUTE AUTO 0.03 K/mm3 (0.00-0.68); EOSINOPHILS PERCENT AUTO 0 % (0-6); Hematocrit 37.2 % (33.0-51.0); Hemoglobin 11.4 g/dL (11.5-16.0); IMMATURE GRAN ABSOLUTE AUTO 0.38 K/mm3 (0.00-0.10); IMMATURE GRAN PERCENT AUTO 2 % (0-1); LYMPHOCYTES ABSOLUTE AUTO 0.13 K/mm3 (0.84-5.20); LYMPHOCYTES PERCENT AUTO 1 % (21-46); MONOCYTES ABSOLUTE AUTO 0.53 K/mm3 (0.16-1.47); MONOCYTES PERCENT AUTO 3 % (4-13); Mean Corpuscular HGB 33.2 pg (26.0-34.0); Mean Corpuscular HGB Conc 30.6 g/dL (31.5-36.5); Mean Platelet Volume 10.7 fL (9.1-12.4); NEUTROPHILS ABSOLUTE AUTO 17.25 K/mm3 (1.96-9.15); NEUTROPHILS PERCENT AUTO 94 % (41-73); Platelet Count 115 K/mm3 (150-400); RDW Coefficient Variation 16.2 % (11.7-14.2); RDW Standard Deviation 65.1 fL (35.1-46.3); Red Blood Cell Count 3.43 M/mm3 (3.80-5.20); White Blood Cell Count 18.35 K/mm3 (4.00-11.30)
[2018-10-21 19:55] LABS: PO2 Arterial 62.9 mmHg (80-100); pH Blood Arterial 7.34 (7.35-7.45)
[2018-10-21 19:56] LABS: Mean Corpuscular Volume 109 fL (80-100)
[2018-10-21 19:56] LABS: PCO2 Arterial 91.9 mmHg (35-45)
[2018-10-21 20:19] LABS: Alanine Aminotransfer (ALT/SGP 31 U/L (12-78); Albumin, Blood 3.2 g/dL (3.4-5.0); Albumin/Globulin Ratio 1.1 (0.8-1.8); Alk Phos 57 U/L (50-136); Anion Gap 4 mmol/L (6-16); Aspartate Aminotrans (AST/SGOT 9 U/L (12-37); Bilirubin, Total 0.6 mg/dL (0.1-1.0); Blood Urea Nitrogen 41 mg/dL (8-24); Bun/Creatinine Ratio 67.8 (12.0-20.0); CO2, Blood 45 mmol/L (21-32); Calcium, Blood 9.6 mg/dL (8.5-10.1); Chloride, Blood 80 mmol/L (98-108); Creatinine, Blood 0.61 mg/dL (0.40-1.00); Globulin, Blood 2.9 g/dL (2.2-4.0); Glomerular Filtration Rate >60 (60-); Glucose, Blood 315 mg/dL (70-99); Magnesium, Blood 2.4 mg/dL (1.6-2.4); Potassium, Blood 5.5 mmol/L (3.5-5.5); Sodium, Blood 129 mmol/L (136-145); Total Protein, Blood 6.1 g/dL (6.4-8.2)
--- NOTE | 2018-10-22 03:20 | NUR ---
ED ADMIT VIA GUERNEY. AWAKE AND CONVERSING AND ORIENTED MOSTLY. A LITTLE FORGETFUL. REVIEWED RESP ROUTINE AND AGREES TO WEAR BIPAP. BED SOAKED OF URINE AND BED BATH WHILE GETTING ON BIPAP. TOLERATED ON 2L WNL SAT. THEN 14/6 AT 35%. FEET MOTTLED AND VS WNL. FEET VERY COLD ALSO.ANASARCA. MOSTLY BLE. WOUNDS ADDESSED AND MEPILEX APPLIED TO COCCYX . UNGT TO PROTECT ISA AREA./
[2018-10-22] MEDS ORDERED: ALBU3IS INH (03:44)
[2018-10-22 04:42] LABS: PO2 Arterial 69.9 mmHg (80-100); pH Blood Arterial 7.37 (7.35-7.45)
[2018-10-22 04:43] LABS: PCO2 Arterial 90.2 mmHg (35-45)
[2018-10-22 05:27] LABS: BASOPHILS ABSOLUTE AUTO 0.01 K/mm3 (0.00-0.23); BASOPHILS PERCENT AUTO 0 % (0-2); EOSINOPHILS PERCENT AUTO 0 % (0-6); Hematocrit 32.6 % (33.0-51.0); Hemoglobin 10.1 g/dL (11.5-16.0); IMMATURE GRAN ABSOLUTE AUTO 0.26 K/mm3 (0.00-0.10); IMMATURE GRAN PERCENT AUTO 2 % (0-1); LYMPHOCYTES ABSOLUTE AUTO 0.44 K/mm3 (0.84-5.20); LYMPHOCYTES PERCENT AUTO 3 % (21-46); MONOCYTES ABSOLUTE AUTO 0.91 K/mm3 (0.16-1.47); MONOCYTES PERCENT AUTO 6 % (4-13); Mean Corpuscular HGB 33.3 pg (26.0-34.0); Mean Corpuscular Volume 108 fL (80-100); Mean Platelet Volume 10.6 fL (9.1-12.4); NEUTROPHILS ABSOLUTE AUTO 14.72 K/mm3 (1.96-9.15); NEUTROPHILS PERCENT AUTO 90 % (41-73); Platelet Count 100 K/mm3 (150-400); RDW Coefficient Variation 16.1 % (11.7-14.2); RDW Standard Deviation 64.8 fL (35.1-46.3); Red Blood Cell Count 3.03 M/mm3 (3.80-5.20); White Blood Cell Count 16.34 K/mm3 (4.00-11.30)
[2018-10-22 05:40] LABS: Blood Urea Nitrogen 39 mg/dL (8-24); Calcium, Blood 9.2 mg/dL (8.5-10.1); Chloride, Blood 84 mmol/L (98-108); Creatinine, Blood 0.53 mg/dL (0.40-1.00); Glomerular Filtration Rate >60 (60-); Glucose, Blood 129 mg/dL (70-99); Potassium, Blood 4.6 mmol/L (3.5-5.5); Sodium, Blood 135 mmol/L (136-145)
[2018-10-22 05:42] LABS: Anion Gap Unable to Calculate mmol/L (6-16)
[2018-10-22 05:43] LABS: CO2, Blood >45 mmol/L (21-32)
--- NOTE | 2018-10-22 06:46 | NUR ---
SUMMARY. AF HR AVERAGE 100-116/ BIPAP REMAINS ON. NO MD CALLED W/ ABG RESULTS RT CHANGED PRESSURES W/ NO CHANGE IN PCO2/.ALLOWED TO SLEEP . AROUSABLE AND NO COMPLAINTS. COMMUNICATES NEEDS
--- NOTE | 2018-10-22 08:07 | NUR ---
Following bedside report, pt noted to be incontinent of urine. She was still wearing the bipap at the time, tolerating it well, and awake and conversant. Care provided and the pt was assisted to sitting positiong for breakfast. Bipap was removed, and 2 l/min n.c. oxygen was applied by the respiratory therapist. She is sitting up eating breakfast at this time, 91% SpO2.
--- NOTE | 2018-10-22 11:00 | NUR ---
INITIAL PAL CARE VISIT: Case conferenced with Dr Grande and reviewed EMR before meeting with pt and her in PCU#11. Pt resting with eyes closed, focused on breathing when I entered. She is awake, opens eyes when I addressed her. Assessed for pain and s/s. She is not c/o or exhibiting any nonverbal indicators of pain. She is not agitated but when talking about what she would like for care and where she would like that care to take place she exhibits anxiety. She states, "I'm tired. I don't care where I am or where I go as long as my can be with me. I need him." Her primary symptom of distress is dyspnea. She was declining use of Bipap earlier and has a nasal canula on now. When she falls asleep and is mouth breathing her biox readings drop in the low 80s/ When reviewing her and her 's understanding of her condition and the information from the Dr colon: her current status it is clear that they understand she is suffering with end stage lung disease and their goal is primarily her comfort. They are not seeking continued intervention for her lung and heart issues. Pt drifted off to sleep while we talked so I arranged with to return between 1-2 pm when additional family would be present and we could discuss options and advanced care planning. All of above reported to RN, critical care educator and
--- NOTE | 2018-10-22 12:55 | NUR ---
The pt's was here this morning, and spoke with Francheska from palliative care team. The pt is resting now in bed, sleeping with the bipap on. She initially just wanted to sleep wearing her oxygen via nasal prongs without the bipap, despite the fact that she told me this morning she has consistently been wearing the bipap at night to sleep. The charge master specialist noted that she had been setting off the alarms on the continuous oxymetry machine for spo2 less than 90%, so insisted that she either stay awake or use the bipap while sleeping. The pt chose to use the bipap, and at this time appears to be resting comfortably.
--- NOTE | 2018-10-22 15:15 | NUR ---
NEW COMFORT CARE ORDERS: I returned to room at 1:30 pm as planned. Pt is now asleep and using bipap, getting some much needed rest. FAmily and I stepped out of room to discuss options, pt/family goals with care, advanced care planning and s/s management. Pt's step-jade, and JESSICA were present. They are in favor of comfort care status and that was explained in detail to them re: changes in care that they would notice. They are concerned about Bill's ('s) safety with attempting hospice at home. Placement options discussed with them if pt is stable for transfer. They understand her insurance would not cover SNF for EOL/hospice care but we discussed private pay for room and board at [facility] or [facility] with hospice agency visiting that would be covered by medicare. THis will be reevaluated tomorrow. After lenghty discussion with family and clarifications of their wishes and goals, which are in line with what pt expressed to me this am, report given to , RN, Business Specialist and Infrastructure Administrator. Comfort Care orders entered and discussed with pt's RN. Pt is allergic to morphine and family verified that she gets a rash from it so roxanol was not included in comfort care orders. I will check on pt prior to end of shift and also reeval in am for s/s management. She is currently able to swallow PO intake and medications. Comfort Cart ordered and status changed to medical floor with no tele. Pt has large number of family and friends who would like to visit her if she is up to it and immediate family is staying near her most of time. Nursing agency appointments supervisor also notified.
--- NOTE | 2018-10-22 18:47 | NUR ---
PT BROUGHT TO ROOM. AT 1845. SETTLED TO BED. CALL LITE IN REACH, MULTIPLE FAMILY AT BEDSIDE. PT CC.
--- NOTE | 2018-10-23 07:52 | NUR ---
SHIFT SUMMARY RECEIVED PT TO 313 DURING SHIFT REPORT. PT ADMITTED FOR RESP. FAILURE AND PLACED ON COMFORT CARE PRIOR TO COMING TO MEDICAL FLOOR. FAMILY IN WITH PT FIRST COUPLE OF HOURS. PT PLACED ON BIPAP SOON AFTER ARRIVAL, PER FAMILY AND PT REQUEST. PT INCONTINENT OF BOWEL AND BLADDER. VERY WEAK. MINIMAL ASSIST BY PT WHEN TURNING AND CHANGING. SOME EXCORIATION ON BUTTOCKS AREA. CALAZIME LOTION REAPPLIED WITH EACH CHANGE. PT REPOSITIONED OFF BUTTOCKS MUCH PT WOULD ALLOW. PT RESTED QUIETLY MOST OF NIGHT. AM RT REMOVED BIPAP PRIOR TO END OF NOC SHIFT. PT AWAKE, FLAT AFFECT. REQUESTED HER GLASS OF WATER. BED ALARM PLACED FOR SAFETY. CALL LT IN REACH.
--- NOTE | 2018-10-23 09:54 | NUR ---
7636 PALLIATIVE CARE COMFORT CARE VISIT. Assessed pt. for comfort. I did not observe any nonverbal indicators of pain. Respirations slightly labored and audible crackles heard in upper airway. She was asleep in darkened room lying fairly flat in bed, O2 via NC in place. Pt's color dusky with circum oral cyanosis noted. Pt mouth breathing while asleep. No family in visiting during my first visit. She woke to my touch touch on her hand. She recognizes me and is able to tell me she is not hurting. Family arrived while I was revieweing EMR outside of room. Discussed my assessment with them and educated and daughter on s/s of dying that they may begin to see. Thanked them for being present and encouraged them to continue to visit with pt while she is able to. THat was her expressed wish yesterday. DAughter states multiple other family members will be coming today. Spoke with RN regarding my assessment and requested atropine drops be given to assist in drying secretions. Will recheck pt later in the day. Spoke with MG re: finding extra chairs for family if they are available.
--- NOTE | 2018-10-23 16:25 | NUR ---
KEISHA VISIT MADE TO FAMILY IN PT'S ROOM. Notified by nursing that pt had . Visit made and time spent with family. grateful that his did not suffer or linger. He states she told him she was ready a week ago and that she was tired. Pt reiterated that to me yesterday & this am. Multiple family members have been with pt t/o day and pt was conversant with them all morning. Time spent listening to pt's and holding his hand. His and Analy's children, grandchildren and other family remain at 's side in support. Family has chosen [facility]. This was relayed to nurse by family earlier also. Reported to RN that I had visited with family and they were invited to stay with pt as long as they needed to.
--- NOTE | 2018-10-23 17:43 | NUR ---
10/23/18 1616 crystal passed at 1616 in room 313 . family was around the patient. pallaitive care was called,, donor line called and the pt was declined for donations. mary mosqueda from [facility] did pick her up after her iv and bourgeois was removed and post mortuem bath was given.
--- NOTE | 2018-10-23 17:52 | NUR ---
PT PASSED 1616, CHARGE NURSE CALLING [facility] IN [place]. FAMILY AT BEDSIDE
--- NOTE | 2018-10-23 18:30 | NUR ---
Large, [place] family presence in room. All report peace with Mrs. Lion's passing. Mrs. Lion was weak, but still conversant with family when I visited. No needs or concerns presented. Offered prayer and anticipatory bereavement juvenile counselor. Family expressed appreciaition for compasionate care by [facility] staff.
== END 2018-10-23 17:38 | DRG 871 ==
LOC: ER 19:20 → ERHOLD 22:01 → PCU 22:01 → MEDS 10-22 18:46
PROVIDERS: Emergency Medicine; ADMIT Internal Medicine
DX: A41.9 Sepsis, unspecified organism (principal); J96.22 Acute and chronic respiratory failure with hypercapnia; J96.21 Acute and chronic respiratory failure with hypoxia; J18.9 Pneumonia, unspecified organism; J44.1 Chronic obstructive pulmonary disease with (acute) exacerbation; E87.1 Hypo-osmolality and hyponatremia; E11.9 Type 2 diabetes mellitus without complications; Z79.4 Long term (current) use of insulin; D63.8 Anemia in other chronic diseases classified elsewhere; D69.6 Thrombocytopenia, unspecified; Z51.5 Encounter for palliative care; Z99.81 Dependence on supplemental oxygen; I48.2 Chronic atrial fibrillation; I11.0 Hypertensive heart disease with heart failure; I50.9 Heart failure, unspecified; R65.20 Severe sepsis without septic shock
CPT/HCPCS: 36415; 36600; 71046; 80048; 80053; 82803; 82947; 83605; 83735; 83880; 84145; 85025; 87040; 93005; 93010; 94640; 94660; 94760; 94762; 96365; 96366; 96367; 96375; 99285-25; J0456; J0696; J1120; J1650; J1940; J3370; J7050